=== PATIENT | female | born 1980 | race African-American/Black ===

== ENCOUNTER 2017-04-19 16:00 | Emergency (ER) | payer MEDICAID ==
[~2017-04-19] VITALS: Ht 185.4 cm; Wt 147.7 kg
[2017-04-19 16:01] VITALS: BP 173/101; PULSE 97; RESP 20; TEMP 98.2; O2SAT 98
--- NOTE | 2017-04-19 16:49 | PD ---
HPI Chief Complaint: Injury Time Seen by Provider: 16:42 Travel History International Travel<30 days: No Contact w/Intl Traveler<30days: No Traveled to known affect area: No History of Present Illness HPI 37-year-old female presents to the emergency room for evaluation of 2 separate complaints. First complaint is left wrist pain that started after she twisted her wrist to prevent a shopping cart from falling over just prior to arrival. States pain is localized to the distal aspect and worse with any range of motion. She has pain that shoots up her arm when she uses her hand. States she does not believe it is broken, likely just sprained, and is requesting it to be wrapped. Second complaint is nasal congestion, sore throat, body aches, headache, and cough that started last night. Symptoms did not really worsened this morning. States she is close to a person who just got over the flu. Patient denies any fevers, nausea, or vomiting. PFSH Past Medical History Diabetes: Yes Patient Takes Glucophage: No Tetanus Vaccination: > 5 Years Influenza Vaccination: No ?: Not LMP: 04/19/16 Past Surgical History Surgical History: No Previous Surgery Social History Alcohol Use: No Tobacco Use: No Substance Use: No Allergies-Medications (Allergen,Severity, Reaction): Coded Allergies: No Known Allergies (Unverified , 04/19/17) Reported Meds & Prescriptions Reported Meds & Active Scripts Active No Active Prescriptions or Reported Medications Review of Systems Except as stated in HPI: all other systems reviewed are Neg Physical Exam Narrative GENERAL: Well-nourished, morbidly obese female in no acute distress. Afebrile. Ambulatory. SKIN: Focused skin assessment warm/dry. HEAD: Normocephalic. EYES: No scleral icterus. No injection or drainage. ENT: Mucosa pink and moist. Mild erythema of pharynx without erythema or exudates. No uvular edema. No uvular, palatal, or tonsillar deviation. Airway patent. Nasal turbinates appear normal without nasal blood, purulent drainage or septal hematoma. NECK: Supple, trachea midline. No JVD or lymphadenopathy. CARDIOVASCULAR: Regular rate and rhythm without murmurs, gallops, or rubs. RESPIRATORY: Breath sounds equal bilaterally. No accessory muscle use. Data Data Last Documented VS Vital Signs Date Time Temp Pulse Resp B/P (MAP) Pulse Ox O2 Delivery O2 Flow Rate FiO2 04/19/17 16:01 98.2 97 20 173/101 (125) 98 Room Air Orders Orders Influenzae A/B Antigen (04/19/17 16:46) Splint Or Brace Apply/Monitor (04/19/17 16:46) MDM Medical Decision Making Medical Screen Exam Complete: Yes Emergency Medical Condition: Yes Medical Record Reviewed: Yes Differential Diagnosis Influenza, wrist sprain, fracture, contusion, upper respiratory infection Narrative Course 37-year-old female presents to the emergency room for evaluation of 2 separate complaints. First complaint is left wrist pain after lifting injury just prior to arrival. Left wrist is neurovascularly intact with 2+ radial pulse. Patient has full range of motion but with moderate pain. She states she does not believe it is broken. Based on mechanism of action, unlikely for fracture. She will be placed in Dash wrap for support and told to follow up with a primary care physician for x-rays if symptoms persist. Second complaint is cold and flu symptoms for the past 2 days. Patient is afebrile and well- appearing in the emergency room. Mild erythema of the pharynx. Rapid influenza is negative. This is URI. Patient discharged with actions to follow up with PCP or return for worsening symptoms. She understands and agrees to plan. Diagnosis Primary Impression: Left wrist sprain Qualified Codes: S63.502A - Unspecified sprain of left wrist, initial encounter Additional Impression: Upper respiratory infection Qualified Codes: J00 - Acute nasopharyngitis [common cold] Referrals: Primary Care Physician Additional Instructions: Use splint as needed for pain. [id number] cough and cold medications as directed for symptoms. Take ibuprofen with food as directed, as needed for pain. Apply ice to the affected area for 20 minutes at a time, as needed for pain and swelling. Follow-up with a primary care physician. Return to the emergency room for worsening symptoms. Scripts No Active Prescriptions or Reported Meds Disposition: 01 DISCHARGE HOME Condition: Stable Daisy Maya Apr 19, 2017 16:49
== END 2017-04-19 18:02 | disposition home or self-care (01) ==
LOC: NEPK 16:00
DX: S63.502A Unspecified sprain of left wrist, initial encounter (principal); X50.1XXA Overexertion from prolonged static or awkward postures, initial encounter; J00 Acute nasopharyngitis [common cold]; E11.9 Type 2 diabetes mellitus without complications
CPT/HCPCS: 87804; 99282

== ENCOUNTER 2017-05-31 20:04 | Emergency (ER) | payer MEDICAID ==
[~2017-05-31] VITALS: Ht 185.4 cm; Wt 147.7 kg
[2017-05-31 20:05] VITALS: BP 151/67; PULSE 97; RESP 16; TEMP 98.6; O2SAT 100
--- NOTE | 2017-05-31 20:18 | PD ---
HPI Chief Complaint: Injury Time Seen by Provider: 20:15 Travel History International Travel<30 days: No Contact w/Intl Traveler<30days: No Traveled to known affect area: No History of Present Illness HPI 37-year-old female presents for evaluation of left shoulder pain. She reports that earlier this morning she was lifting sandbags and she strained her left shoulder. She now has left shoulder pain which is worse with range of motion activities. She denies any history of injury to this shoulder in the past. She denies any numbness, tingling. She has no other complaints at this time. [facility] Past Medical History Diabetes: Yes Social History Alcohol Use: No Tobacco Use: No Substance Use: No Allergies-Medications (Allergen,Severity, Reaction): Coded Allergies: No Known Allergies (Unverified , 04/19/17) Reported Meds & Prescriptions Reported Meds & Active Scripts Active No Active Prescriptions or Reported Medications Review of Systems Musculoskeletal: Positive: Limited ROM, Pain Skin: Positive Other (denies open wounds) Physical Exam Narrative GENERAL: Well-developed well-nourished female in no acute distress SKIN: Warm and dry. HEAD: Atraumatic. Normocephalic. EYES: Pupils equal and round. No scleral icterus. No injection or drainage. ENT: No nasal bleeding or discharge. Mucous membranes pink and moist. NECK: Trachea midline. No JVD. CARDIOVASCULAR: Regular rate and rhythm. No murmur appreciated. RESPIRATORY: No accessory muscle use. Clear to auscultation. Breath sounds equal bilaterally. MUSCULOSKELETAL: No obvious deformities. The patient has limited left shoulder abduction, internal next rotation. Pain is decreased with passive range of motion of the left shoulder. There is no reproducible bony tenderness to palpation. Normal venetian blind cleaner strength. 5 out of 5 muscle strength and arm flexion and extension. 2+ radial pulse. NEUROLOGICAL: Awake and alert. No obvious cranial nerve deficits. Motor grossly within normal limits. Normal speech. Data Data Last Documented VS Vital Signs Date Time Temp Pulse Resp B/P (MAP) Pulse Ox O2 Delivery O2 Flow Rate FiO2 05/31/17 20:05 98.6 97 16 151/67 (95) 100 Room Air Orders Orders Support Splint (05/31/17 20:32) Ed Discharge Order (05/31/17 20:32) MDM Medical Decision Making Medical Screen Exam Complete: Yes Emergency Medical Condition: Yes Medical Record Reviewed: Yes Differential Diagnosis Left shoulder strain, rotator cuff tear, acromioclavicular separation Narrative Course Patient's history and examination consistent with left rotator cuff strain versus tear. The patient will be given a sling for comfort for the next few days. She understands the importance of passive range of motion activities to prevent adhesive capsulitis. Recommended outpatient follow-up with primary care physician in 2 weeks. She is stable for discharge. Diagnosis Primary Impression: Strain of tendon of left rotator cuff Additional Instructions: Sling for short-term 2-3 days only. Several times a day perform passive range of motion activities as discussed. Take [id number] Tylenol as needed for pain. Dosing instructions on the bottle. Follow-up with primary care physician in 2 weeks for recheck. If symptoms persist outpatient MRI imaging may be warranted. Med/Other Pt SpecificInfo: Orthopedic Instructions Scripts No Active Prescriptions or Reported Meds Disposition: 01 DISCHARGE HOME Condition: Stable Terell Fan May 31, 2017 20:18
== END 2017-05-31 21:03 | disposition home or self-care (01) ==
LOC: NEPK 20:04
DX: S46.012A Strain of muscle(s) and tendon(s) of the rotator cuff of left shoulder, initial encounter (principal); E11.9 Type 2 diabetes mellitus without complications; X50.0XXA Overexertion from strenuous movement or load, initial encounter
CPT/HCPCS: 99282

== ENCOUNTER 2017-08-21 17:15 | Emergency (ER) | payer MEDICAID ==
[~2017-08-21] VITALS: Ht 188 cm; Wt 147.0 kg
[~2017-08-21 17:15] MED LIST: GLIP10TA6 PO
[2017-08-21 17:29] VITALS: BP 158/75; PULSE 83; RESP 18; TEMP 98.5
[2017-08-21] MEDS ORDERED: ORPHENADRINE INJ 60 MG/2 ML AMP IM ONE (22:00)
[2017-08-21] MEDS ORDERED: KETOROLAC TROMETHAMINE 60 MG/2 ML (IM) VIAL IM ONE (22:00)
[2017-08-21] MEDS ORDERED: CYCL10TA PO (22:03)
--- NOTE | 2017-08-21 22:03 | PD ---
HPI Chief Complaint: Injury Time Seen by Provider: 21:43 Travel History International Travel<30 days: No Contact w/Intl Traveler<30days: No Traveled to known affect area: No History of Present Illness HPI Patient is a 37-year-old female presenting to emerge from for evaluation of right shoulder pain. Patient states she was on a bouncy house yesterday when she jumped up in the air and it suddenly deflated causing her to land on her right shoulder. Patient states her pain is a 7 out of 10, it is aching and sore. She states that she can move it is very painful. She denies any head injury or loss of consciousness, shortness of breath, abdominal pain, headache. Patient took a Percocet prior to arrival. Symptom onset was sudden, symptoms are moderate in nature. There are no alleviating factors. PFSH Past Medical History Diabetes: Yes (dm2) Patient Takes Glucophage: No Diminished Hearing: No ?: Not LMP: 08/2017 Past Surgical History Abdominal Surgery: Yes (according to patient "flesh eating bacteria") Other Surgery: Yes (2 cyst on each breast removed) Social History Alcohol Use: No Tobacco Use: No Substance Use: No Allergies-Medications (Allergen,Severity, Reaction): Coded Allergies: clindamycin (Verified Allergy, Intermediate, swelling, itching, vomiting and constipation, 08/21/17) hydrocodone (Verified Allergy, Intermediate, swelling, itching, vomiting, constipation, 08/21/17) ibuprofen (Verified Allergy, Intermediate, swelling, itching, vomiting and constipation, 08/21/17) ketorolac (Verified Allergy, Intermediate, swelling, itching, vomiting and constipation, 08/21/17) sulfamethoxazole (Verified Allergy, Intermediate, swelling, itching, vomiting and constipation, 08/21/17) tramadol (Verified Allergy, Intermediate, swelling, itching, vomiting and constipation, 08/21/17) trimethoprim (Verified Allergy, Intermediate, swelling, itching, vomiting and constipation, 08/21/17) Reported Meds & Prescriptions Reported Meds & Active Scripts Active Reported Glipizide 10 Mg Tab 10 Mg PO BIDAC Take 30 minutes before a meal Review of Systems Except as stated in HPI: all other systems reviewed are Neg Musculoskeletal: Positive: Myalgias, Arthralgias, Pain Physical Exam Narrative GENERAL: Overweight, well-developed, alert female. Presenting in no acute distress. SKIN: Warm and dry. HEAD: Atraumatic. Normocephalic. EYES: Pupils equal and round. No scleral icterus. No injection or drainage. ENT: No nasal bleeding or discharge. Mucous membranes pink and moist. NECK: Trachea midline. No JVD. CARDIOVASCULAR: Regular rate and rhythm. RESPIRATORY: No accessory muscle use. Clear to auscultation. Breath sounds equal bilaterally. GASTROINTESTINAL: Abdomen soft, non-tender, nondistended. Hepatic and splenic margins not palpable. MUSCULOSKELETAL: Extremities without clubbing, cyanosis, or edema. Decreased range of motion with abduction of right shoulder. No obvious deformities noted. 2+ radial pulse, tenderness to palpation to right shoulder diffusely. NEUROLOGICAL: Awake and alert. No obvious cranial nerve deficits. Motor grossly within normal limits. Five out of 5 muscle strength in the arms and legs. Normal speech. PSYCHIATRIC: Appropriate mood and affect; insight and judgment normal. Data Data Last Documented VS Vital Signs Date Time Temp Pulse Resp B/P (MAP) Pulse Ox O2 Delivery O2 Flow Rate FiO2 08/21/17 17:29 98.5 83 18 158/75 (102) Orders Orders Ketorolac Inj (Toradol Inj) (08/21/17 22:00) Orphenadrine Inj (Norflex Inj) (08/21/17 22:00) [facility] Medical Decision Making Medical Screen Exam Complete: Yes Emergency Medical Condition: Yes Interpretation(s) Vital Signs Date Time Temp Pulse Resp B/P (MAP) Pulse Ox O2 Delivery O2 Flow Rate FiO2 08/21/17 17:29 98.5 83 18 158/75 (102) Differential Diagnosis Fracture versus sprain versus strain versus contusion versus less likely dislocation versus other Narrative Course Patient is a 37-year-old female presenting to the emergency room for evaluation of right shoulder pain. Her vital signs are stable. She is neurovascularly intact. Imaging was ordered while patient was waiting in triage however when patient was placed in a room, she refused x-ray stating that she just wanted a work note. Patient will be given Toradol and Norflex now for pain. Initially it was reported that she has an allergy to Toradol however it appears more consistent with GI upset with any NSAID. Patient has not had any history of anaphylactic reactions. Patient was advised to return to emergency department immediately for any new or worsening symptoms or if pain did not improve with conservative management. Patient verbalized understanding of instructions. Patient stable for discharge. Diagnosis Primary Impression: Shoulder pain, right Qualified Codes: M25.511 - Pain in right shoulder Referrals: [facility] Primary Care Physician Patient Instructions: General Instructions, Shoulder Pain (GEN), Shoulder Separation Exercises (GEN) Additional Instructions: Follow-up with your primary doctor Continue gentle range of motion exercises, apply warm heat to affected area, avoid exacerbating activities, avoid bed rest Take medications as directed Return to emergency department for any new or worsening symptoms Med/Other Pt SpecificInfo: Prescription(s) given Scripts Cyclobenzaprine (Flexeril) 10 Mg Tab 10 MG PO TID Y for MUSCLE SPASM, #30 TAB 0 Refills Prov: Debra King 08/21/17 Disposition: 01 DISCHARGE HOME Condition: Stable Debra King August 21, 2017 22:03
== END 2017-08-21 22:43 | disposition home or self-care (01) ==
LOC: NEPD 17:15 → NED 17:15 → NEPD 22:43
DX: M25.511 Pain in right shoulder (principal); E11.9 Type 2 diabetes mellitus without complications; X58.XXXA Exposure to other specified factors, initial encounter; Y92.89 Other specified places as the place of occurrence of the external cause; Z79.84 Long term (current) use of oral hypoglycemic drugs
CPT/HCPCS: 96372; 99283; J1885; J2360